=== PATIENT | female | born 1960 | race Hispanic/Latino ===

== ENCOUNTER 2018-05-06 05:25 | Inpatient (IN) | payer MEDICARE, MEDICAID ==
--- NOTE | 2018-05-06 06:17 | ED PDOC ---
HPI: Psych/Substance Abuse Time Seen by Provider: 05/06/18 05:25 Chief Complaint (Nursing): Psychiatric Evaluation Chief Complaint (Provider): Psychiatric evaluation History Per: Patient, EMS History/Exam Limitations: no limitations Associated Symptoms: Suicidal Thoughts, Suicidal Plan Additional Complaint(s): 57yo female, past medical history of Anxiety, Depression, Hypothyroidism, brought to ER by EMS for a psychiatric evaluation. Patient reports she has suicidal ideation with plan to take poison. She denies any homicidal ideation or hallucinations. She offers no medical complaints. Of note, patient's brother recently and that might have been due to a suicide. Patient also states she is compliant with her depression medications. Past Medical History Reviewed: Historical Data, Nursing Documentation, Vital Signs Vital Signs: Last Vital Signs Temp 98.6 F 05/06/18 05:31 Pulse 64 05/06/18 05:31 Resp 18 05/06/18 05:31 BP 127/62 05/06/18 05:31 Pulse Ox 100 05/06/18 05:31 - Medical History PMH: Anxiety, Depression, Diabetes, HTN (no longer takes meds), Hypercholesterolemia, Hypothyroidism, TIA Denies: Chronic Kidney Disease - Surgical History Surgical History: No Surg Hx - Family History Family History: States: Unknown Family Hx - Immunization History Hx Influenza Vaccination: Yes Hx Pneumococcal Vaccination: Yes - Home Medications Home Medications: Ambulatory Orders Medication Instructions Recorded Ergocalciferol (Vitamin D2) 50,000 unit PO FR 05/06/18 [Vitamin D2] LORazepam [Ativan] 0.5 mg PO Q12 05/06/18 Levothyroxine [Synthroid] 50 mcg PO DAILY 05/06/18 Pantoprazole Sodium [Protonix] 20 mg PO DAILY 05/06/18 Polyethylene Glycol 3350 [Miralax] 17 gm PO DAILY PRN 05/06/18 RX: Aspirin [Ecotrin] 81 mg PO DAILY 05/06/18 RX: Pravastatin Sodium [Pravachol] 40 mg PO HS 05/06/18 Sertraline [Zoloft] 50 mg PO DAILY 05/06/18 Zolpidem [Ambien] 10 mg PO HS 05/06/18 lamoTRIgine [Lamictal] 50 mg PO QAM 05/06/18 lamoTRIgine [Lamictal] 100 mg PO HS 05/06/18 - Allergies Allergies/Adverse Reactions: Allergies Allergy/AdvReac Type Severity Reaction Status Date / Time No Known Allergies Allergy Unverified 05/06/18 05:33 Review of Systems ROS Statement: Except As Marked, All Systems Reviewed And Found Negative Constitutional: Negative for: Fever, Chills Cardiovascular: Negative for: Chest Pain Respiratory: Negative for: Shortness of Breath Gastrointestinal: Negative for: Abdominal Pain Genitourinary Female: Negative for: Dysuria Musculoskeletal: Negative for: Back Pain Psych: Positive for: Suicidal ideation Physical Exam - Reviewed Nursing Documentation Reviewed: Yes Vital Signs Reviewed: Yes - Physical Exam Appears: Positive for: Non-toxic Head Exam: Positive for: ATRAUMATIC, NORMAL INSPECTION, NORMOCEPHALIC Skin: Positive for: Normal Color Eye Exam: Positive for: Normal appearance, EOMI, PERRL Neck: Positive for: Normal, Supple Cardiovascular/Chest: Positive for: Regular Rate, Rhythm Respiratory: Positive for: Normal Breath Sounds. Negative for: Wheezing Gastrointestinal/Abdominal: Positive for: Normal Exam, Soft. Negative for: Tenderness Back: Positive for: Normal Inspection. Negative for: Vertebral Tenderness Extremity: Positive for: Normal ROM. Negative for: Pedal Edema, Deformity Neurologic/Psych: Positive for: Alert, Oriented, Mood/Affect (calm and cooperative). Negative for: Motor/Sensory Deficits - Laboratory Results Result Diagrams: 05/06/18 06:50 05/06/18 06:50 - ECG O2 Sat by Pulse Oximetry: 100 (RA) Pulse Ox Interpretation: Normal Medical Decision Making Medical Decision Making: Impression: Suicidal ideation, crisis evaluation Plan: * Labs * UDS * Urinalysis * UPreg * Chest x-ray * EKG * Crisis evaluation 07:00 Patient resting in room comfortably. Patient to be signed out to Dr. Callaway pending labs/med clearance, crisis evaluation. Scribe Attestation: Documented by Denise Justice, acting as a scribe for Bob Freire MD. Provider Scribe Attestation: All medical record entries made by the Scribe were at my direction and personally dictated by me. I have reviewed the chart and agree that the record accurately reflects my personal performance of the history, physical exam, medical decision making, and the department course for this patient. I have also personally directed, reviewed, and agree with the discharge instructions and disposition. Disposition - Clinical Impression Clinical Impression: Depression - Patient ED Disposition Is Patient to be Admitted: Transfer of Care - Disposition Disposition: Transfer of Care Disposition Time: 07:00 Condition: STABLE Patient Signed Over To: Jonatan Callaway
[2018-05-06 07:08] LABS: BASO # 0.1 K/uL (0.0-0.2); BASO % 1.4 % (0.0-2.0); EOS # 0.1 K/uL (0.0-0.7); EOS % 1.8 % (0.0-4.0); HEMOGLOBIN 13.2 g/dL (12.0-16.0); LYMPH # 2.6 K/uL (1.0-4.3); MEAN CELL VOLUME 84.8 fl (81.0-99.0); MEAN CORPUSCULAR HEMOGLOBIN 27.9 pg (27.0-31.0); MEAN CORPUSCULAR HGB CONC 32.9 g/dL (33.0-37.0); MEAN PLATELET VOLUME 7.4 fl (7.2-11.7); MONO # 0.6 K/uL (0.0-0.8); MONO % 9.5 % (0.0-10.0); NEUT # 2.8 K/uL (1.8-7.0); NEUT % 45.3 % (50.0-75.0); RBC 4.74 Mil/uL (3.80-5.20); RED CELL DISTRIBUTION WIDTH 15.5 % (11.5-14.5); WHITE BLOOD COUNT 6.3 K/uL (4.8-10.8)
[2018-05-06 07:16] LABS: ACETAMINOPHEN < 10.0 ug/ml (10.0-30.0); ALB/GLOB RATIO 1.1 (1.0-2.1); ALBUMIN 3.9 g/dL (3.5-5.0); ALT/SGPT 21 U/L (9-52); AST/SGOT 17 U/L (14-36); BLOOD UREA NITROGEN 11 mg/dl (7-17); CALCIUM 9.2 mg/dL (8.4-10.2); GFR NON-AFRICAN AMERICAN > 60; SALICYLATE < 1.0 mg/dl
--- NOTE | 2018-05-06 07:54 | ED PDOC ---
- Laboratory Results Result Diagrams: 05/06/18 06:50 05/06/18 06:50 - ECG O2 Sat by Pulse Oximetry: 100 (RA) Medical Decision Making Medical Decision Making: Medically stable for psychiatric admission Disposition - Clinical Impression Clinical Impression: Depression - POA Present On Arrival: None - Disposition Disposition: Admitted as In-Patient Disposition Time: 09:07 Condition: FAIR Forms: [facility] [facility] (Montenegrin)
[2018-05-06] MEDS ORDERED: Magnesium Hydroxide Susp 30 ml UD PO PRN (09:36)
[2018-05-06] MEDS ORDERED: Alum-Mag Hydrox-Simethicone Susp (30 mL) PO PRN (09:36)
[2018-05-06] MEDS ORDERED: Bismuth Subsalicylate 262 mg/15 ml Sus (240 ml) PO PRN (09:36)
[2018-05-06 10:03] LABS: URINE BACTERIA RARE (<OCC); URINE BILIRUBIN NEGATIVE (NEGATIVE); URINE BLOOD NEGATIVE (NEGATIVE); URINE CLARITY CLEAR (Clear); URINE COLOR YELLOW (YELLOW); URINE GLUCOSE (UA) NEG (Normal); URINE LEUKOCYTE ESTERASE SMALL Leu/uL (Negative); URINE PROTEIN NEGATIVE (NEGATIVE); URINE UROBILINOGEN 0.2-1.0 mg/dL (0.2-1.0)
[2018-05-06 10:04] LABS: SQUAMOUS EPITHIAL 2 /hpf (0-5)
[2018-05-06 10:33] LABS: BARBITURATES, UR NEGATIVE (NEGATIVE); BENZODIAZEPINES, UR NEGATIVE (NEGATIVE); OPIATES, UR NEGATIVE (NEGATIVE); PHENCYCLIDINE, UR NEGATIVE (NEGATIVE)
--- NOTE | 2018-05-06 11:27 | PCM.PSYCH ---
Initial Psychiatric Evaluation - Initial Psychiatric Evaluation Type of Admission: Voluntary Legal Status: Capacity Chief Complaint (in patient's own words): "I wanted to kill myself." Patient's Reaction to Hospitalization: HPI: 57 yo female w/ h/o Major Depressive Disorder and Borderline Personality Disorder, presents w/ suicidal ideation w/ plan to ingest rat poison in the context of the recent of her brother 2 weeks ago. Patient reports that when she found out about her brothers , she attempted suicide by overdosing on her medications (quantity unknown), but she did not tell anyone about the attempt and was not hospitalized at the time. She reports that she has not been compliant with medications since she overdosed on her psychiatric medications and does not have a current psychiatrist. She continues to be depressed, hopeless w/ suicidal ideation, poor sleep, poor appetite. Denies AH/ VH/HI. PPHx: Multiple past psychiatric admissions >10 and multiple past suicide attempts >3, most recent ~2 weeks ago after discovering her brother ; She reports that she does not currently have outpatient psychiatric follow-up. PMHx: HTN, Hypothyroidism, HLD, Chronic nerve pain (fingers), Chronic headaches/ migraines ALL: NKDA SHx: Lives alone, , no kids, from [place]; denies drugs/etoh/cig use FHx: Brother w/ depression recently by possible suicide Current Medications: Active Medications Generic Name Dose Route Start Last Admin Trade Name Freq PRN Reason Stop Dose Admin Acetaminophen 650 mg 05/06/18 09:36 Tylenol 325mg Tab PO Q4 PRN Pain, moderate (4-7) Al Hydrox/Mg Hydrox/Simethicone 30 ml 05/06/18 09:36 Maalox Plus 30 Ml PO Q4 PRN Dyspepsia Aspirin 81 mg 05/07/18 09:00 Ecotrin PO DAILY [facility] Bismuth Subsalicylate 524 mg 05/06/18 09:36 Pepto-Bismol PO Q4 PRN Diarrhea Ergocalciferol cap 05/07/18 09:00 Drisdol 50,000 Intl Units Cap PO Q7D [facility] Lorazepam 0.5 mg 05/06/18 09:36 Ativan PO 05/20/18 09:37 Q6 PRN Anixety/Agitation Lorazepam 0.5 mg 05/06/18 09:36 Ativan PO 05/20/18 09:37 HS PRN Insomnia Magnesium Hydroxide 30 ml 05/06/18 09:36 Milk Of Magnesia PO HS PRN Constipation Sertraline HCl 50 mg 05/07/18 09:00 Zoloft PO DAILY [facility] Past Psychiatric History - Past Psychiatric History Previous Treatment History: Inpatient Pertinent Medical Hx (Current Medical&Sleep Prob, Allergies): Allergies Allergy/AdvReac Type Severity Reaction Status Date / Time No Known Allergies Allergy Unverified 05/06/18 05:33 Aspirin [Ecotrin] 81 mg PO DAILY 05/06/18 Ergocalciferol (Vitamin D2) [Vitamin D2] 50,000 unit PO FR 05/06/18 LORazepam [Ativan] 0.5 mg PO Q12 05/06/18 Levothyroxine [Synthroid] 50 mcg PO DAILY 05/06/18 Pantoprazole Sodium [Protonix] 20 mg PO DAILY 05/06/18 Polyethylene Glycol 3350 [Miralax] 17 gm PO DAILY PRN 05/06/18 Pravastatin Sodium [Pravachol] 40 mg PO HS 05/06/18 Sertraline [Zoloft] 50 mg PO DAILY 05/06/18 Zolpidem [Ambien] 10 mg PO HS 05/06/18 lamoTRIgine [Lamictal] 50 mg PO QAM 05/06/18 lamoTRIgine [Lamictal] 100 mg PO HS 05/06/18 Review of Systems - Psychiatric Psychiatric: As Per HPI, Abnormal Sleep Pattern, Anhedonia, Anxiety, Behavioral Changes, Change in Appetite, Depression, Difficulty Concentrating, Hopelessness , Irritability, Mood Swings, Suicidal Ideation Mental Status Examination - Personal Presentation Personal Presentation: Looks stated age - Affect Affect: Depressed - Motor Activity Motor Activity: Calm - Reliability in Providing Information Reliability in Providing Information: Fair - Speech Speech: Organized, Coherent - Mood Mood: Depressed - Formal Thought Process Formal Thought Process: No Impairment - Hallucinations/Delusions Additional comments: No AH/VH/paranoia/delusions - Obsessions/Compulsions Obsessions: No Compulsions: No - Cognitive Functions Orientation: Person, Place, Situation, Time Sensorium: Alert Attention/Concentration: Attentive Estimate of Intelligence: Average Judgement: Intact, as evidence by: Insight regarding need for hospitalization Memory: Recent intact, as evidence by: Ability to recall events of the day, Remote intact, as evidenced by: Abilit to recall sig. life events, Remote intact , as evidenced by: Ability to recall historical events - Risk Risk: Suicidal, Diminished functioning - Strength & Assets Inventory Strength & Assets Inventory: Cooperative - Limitations Limitations: Living alone DSM 5 DX - DSM 5 DSM 5 Diagnosis: Major Depressive Disorder - Recommended/Plan of Treatment Treatment Recommendations and Plan of Treatment: Major Depressive Disorder, Borderline Personality Disorder -Admit to psychiatry unit -Restart Zoloft 50 mg PO Daily -Medicine consult -Individual and group therapy -Psychoeducation -Obtain collateral history -Disposition planning Projected ELOS: 7-10 days Discharge Plan and Discharge Criteria: Discharge when patient is psychiatrically stable - Smoking Cessation Smoking Cessation Initiated: No Reason for not providing: Not indicated
--- NOTE | 2018-05-06 12:43 | PCM.BM ---
<Kaelyn Carlson - Last Filed: 05/06/18 12:35> Treatment Plan Problems - Problems identified on initial assessmt suicidal ideation Date Initiated: 05/06/18 Time Initiated: 12:43 Date resolved: 05/13/18 Assessment reference: NA Status: Active Priority: 1 Problem 2 Date Initiated: 05/06/18 Time Initiated: 12:44 Date resolved: 05/13/18 Assessment reference: NA Status: Active Priority: 2 Treatment assets and liabiliti Patient Assests: cooperative, ADL independent, negotiates basic needs Patient Liabilities: poor support system, medical problems - Milieu Protocol Maintain good personal hygiene: every shift Encourage regular showers, every shift Remind patient to perform daily oral care, every shift Assist patient to perform ADL's Maintain personal safety: every shift Educate patient to report safety concerns to staff, every shift Monitor environment for contraband/sharps Medication safety: Monitor for expected outcome, potential side effects: every shift, Assess barriers to learning: every shift, Assess readiness for medication education: every shift Milieu Narrative: Major Depressive Disorder, Borderline Personality Disorder -Admit to psychiatry unit -Restart Zoloft 50 mg PO Daily -Medicine consult -Individual and group therapy -Psychoeducation -Obtain collateral history -Disposition planning Discharge/Continuing Care - Treatment Team Participation Patient/Family/SO Statement: Major Depressive Disorder, Borderline Personality Disorder -Admit to psychiatry unit -Restart Zoloft 50 mg PO Daily -Medicine consult -Individual and group therapy -Psychoeducation -Obtain collateral history -Disposition planning <Joanie Srinivasan - Last Filed: 05/07/18 10:49> - Diagnosis (1) Major depressive disorder Status: Acute Interventions: Medication management, Individual and group therapy, Psychoeducation 05/07/18 10:49 <Lay Argueta - Last Filed: 05/10/18 08:00> Family Contact Family involvement: Patient does not wish Family/SO involvement - Outside Agency [facility] Care involvment: Information-sharing Agency contact name: Sarah- Medical coordinator Agency contact number: [phone] - Goals for Treatment Patient goals for treatment: Pt to be encouraged to attend activity and clinical groups 3-5x per week to identify at least 2 contributing factors to depression and suicide attempt. Psycho-education to be provided to patient/family regarding benefits of medications and treatment adherence. Pt to be encouraged to participate in group milieu to develop effective coping skills to reduce depression and free of suicide ideation. Coordinate discharge resource needs by providing referral for psychiatric treatment follow up in the community. Discharge/Continuing Care - Education Needs Education Needs: Patient Medication, Patient Diagnosis/Disease Process, Patient Coping Skills, Patient Community resources, Patient Nutrition, Patient Health Practices/Safety, Patient Personal Hygiene/Grooming, Patient Aftercare Safety Plan - Discharge Discharge Criteria: Tolerates medication w/o severe side effects, Free of Suicidal thoughts, Normal sleep pattern, Ability to care for self, Reduction of target symptoms Discharge to:: Home - Additional Comments 05/10/18 07:43 LATE ENTRY FROM 05/09/2018: Pt seen and discussed in team meeting. Reason for admission reviewed and discussed. Pt's progress on the unit reviewed. Pt reported feeling depressed and intermittent suicide ideation. Pt verbalized and agreed to contract for safety on the unit. Pt reported that last night she was sleeping and in the middle of the night "I started to look around to see what i can do to end my life." Pt reported she saw a "light with glass and thought i can cut myself with it." Pt continues to verbalize "I want to go where he is" making reference to her brother. Pt reported having obsessive thoughts about her brothers "my mind is like a machine." Pt also reported that she has contacted several organization in regards to organ donor. Pt's medications reviewed and discussed. Pt's social and emotional issues reviewed and discussed. Tx plan reviewed; pt verbalized agreement. Pt continues to refuse to provide collateral information. SW will continue to follow case. - Treatment Team Participation Discussed with Family/SO: No (Pt refused family involvement) Was Patient/Family/SO present at Treatment Team Meeting: Yes
--- NOTE | 2018-05-06 13:51 | CARD ---
APPROVED REPORT Date of service: 05/06/2018 EKG Measurement Heart [id number] <Conclusion> Sinus bradycardia with sinus arrhythmia Nonspecific STT wave abnormality Prolonged QT Abnormal ECG
[2018-05-07] MEDS: Ergocalciferol 50,000 Intl Units Cap PO SCH (08:18)
[2018-05-07] MEDS: Levothyroxine 50 MCG TAB PO SCH (08:19)
[2018-05-07 08:56] LABS: T4 8.28 ug/dl (5.5-11.0)
--- NOTE | 2018-05-07 10:52 | PCM.PYCHPN ---
Psychiatric Progress Note - Psychiatric Progress Note Patient seen today, length of contact: Pt evaluated, case discussed w/ team, chart reviewed Patient Chief Complaint: "I wanted to kill myself." Problems Identified/Issues Discussed: Patient continues to report feeling depressed w/ low mood, low energy, anhedonia and poor concentration. She continues to have intermittent thoughts of suicide, but is able to contract for safety on the unit. NO AH/VH/paranoia/ delusions. Medication Change: No Medical Record Reviewed: Yes Consults ordered or reviewed: Medicine consult Mental Status Examination - Cognitive Function Orientation: Person, Place, Situation, Time Memory: Intact Attention: WNL Concentration: WNL Association: WNL Fund of Knowledge: [facility] Decription of patient's judgement and insights: Poor I/J - Mood Mood: Depressed - Affect Affect: Depressed - Speech Speech: Soft - Formal Thought Process Formal Thought Process: No Impairment Psychotic Thoughts and Behaviors: NO AH/VH/paranoia/delusions - Suicidal Ideation Suicidal Ideation: Yes - Homicidal Ideation Homicidal Ideation: No Goal/Treatment Plan - Goal/Treatment Plan Need for Continued Stay: Remain at risks for inpatient hospitalization, Severe depression anxiety, Discharge may exacerbated symptoms Progress Toward Problem(s) and Goals/Treatment Plan: Major Depressive Disorder, Borderline Personality Disorder -Continue Zoloft 50 mg PO Daily -Medicine consult -Individual and group therapy -Psychoeducation -Obtain collateral history -Disposition planning Estimated Date of D/C: 05/13/18
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
[2018-05-07 17:27] LABS: FOLATE 6.3 ng/mL
[2018-05-07] MEDS: Pravastatin Sodium 40 MG TAB PO SCH (21:12)
[2018-05-08] MEDS: Levothyroxine 50 MCG TAB PO SCH (05:57)
[2018-05-08] MEDS: Pantoprazole 20 mg EC Tab PO SCH (08:47)
--- NOTE | 2018-05-08 08:51 | PCM.PYCHPN ---
Psychiatric Progress Note - Psychiatric Progress Note Patient seen today, length of contact: Pt evaluated, case discussed w/ team, chart reviewed Patient Chief Complaint: "I wanted to kill myself." Problems Identified/Issues Discussed: Patient continues to report feeling depressed w/ low mood, low energy, anhedonia and poor concentration. She continues to have thoughts of suicide, feels hopeless and states that life is not worth living. No AH/VH/paranoia/ delusions. Medication Change: No Medical Record Reviewed: Yes Consults ordered or reviewed: Medicine consult Mental Status Examination - Cognitive Function Orientation: Person, Place, Situation, Time Memory: Intact Attention: WNL Concentration: WNL Association: WNL Fund of Knowledge: [facility] Decription of patient's judgement and insights: Poor I/J - Mood Mood: Depressed - Affect Affect: Depressed - Speech Speech: Soft - Formal Thought Process Formal Thought Process: No Impairment Psychotic Thoughts and Behaviors: NO AH/VH/paranoia/delusions - Suicidal Ideation Suicidal Ideation: Yes - Homicidal Ideation Homicidal Ideation: No Goal/Treatment Plan - Goal/Treatment Plan Need for Continued Stay: Remain at risks for inpatient hospitalization, Severe depression anxiety, Discharge may exacerbated symptoms Progress Toward Problem(s) and Goals/Treatment Plan: Major Depressive Disorder -Continue Zoloft 50 mg PO Daily -Medicine consult -Individual and group therapy -Psychoeducation -Obtain collateral history -Disposition planning Estimated Date of D/C: 05/13/18
[2018-05-08] MEDS: Pravastatin Sodium 40 MG TAB PO SCH (21:08)
[2018-05-09] MEDS: Levothyroxine 50 MCG TAB PO SCH (05:38)
[2018-05-09] MEDS: Pantoprazole 20 mg EC Tab PO SCH (09:30)
--- NOTE | 2018-05-09 11:19 | PCM.PYCHPN ---
Psychiatric Progress Note - Psychiatric Progress Note Patient seen today, length of contact: Pt evaluated, case discussed w/ team, chart reviewed Patient Chief Complaint: "I wanted to kill myself." Problems Identified/Issues Discussed: Patient continues to report feeling severely depressed w/ active suicidal ideation, w/ recent thoughts to find glass to cut her wrist. She states that she can not stop thinking about her brothers and feels guilty because shes she may have caused him to commit suicide and not knowing his cause of "will drive [her] crazy." She continues to feel hopeless and does not believe life is worth living. No AH/VH/paranoia/delusions. Medication Change: Yes (Increase Zoloft) Medical Record Reviewed: Yes Consults ordered or reviewed: Medicine consult Mental Status Examination - Cognitive Function Orientation: Person, Place, Situation, Time Memory: Intact Attention: WNL Concentration: WNL Association: WNL Fund of Knowledge: [facility] Decription of patient's judgement and insights: Poor I/J - Mood Mood: Depressed - Affect Affect: Depressed - Speech Speech: Soft - Formal Thought Process Formal Thought Process: No Impairment Psychotic Thoughts and Behaviors: NO AH/VH/paranoia/delusions - Suicidal Ideation Suicidal Ideation: Yes Plan: Plan to slit wrists - Homicidal Ideation Homicidal Ideation: No Goal/Treatment Plan - Goal/Treatment Plan Need for Continued Stay: Remain at risks for inpatient hospitalization, Severe depression anxiety, Discharge may exacerbated symptoms Progress Toward Problem(s) and Goals/Treatment Plan: Major Depressive Disorder, Borderline Personality Disorder -Increase Zoloft to 100 mg PO HS -Medicine consult -Individual and group therapy -Psychoeducation -Disposition planning Estimated Date of D/C: 05/16/18
[2018-05-09] MEDS: Pravastatin Sodium 40 MG TAB PO SCH (21:03)
[2018-05-10] MEDS: Levothyroxine 50 MCG TAB PO SCH (06:48)
--- NOTE | 2018-05-10 09:25 | PCM.PYCHPN ---
Psychiatric Progress Note - Psychiatric Progress Note Patient seen today, length of contact: Pt evaluated, case discussed w/ team, chart reviewed Patient Chief Complaint: "I wanted to kill myself." Problems Identified/Issues Discussed: Patient continues to report feeling severely depressed w/ active suicidal ideation. She continues to feel hopeless and does not believe life is worth living. She continues to be preoccupied with her brother's . No AH/VH/paranoia/delusions. Medication Change: No Medical Record Reviewed: Yes Consults ordered or reviewed: Medicine consult Mental Status Examination - Cognitive Function Orientation: Person, Place, Situation, Time Memory: Intact Attention: WNL Concentration: WNL Association: WNL Fund of Knowledge: [facility] Decription of patient's judgement and insights: Poor I/J - Mood Mood: Depressed - Affect Affect: Depressed - Speech Speech: Soft - Formal Thought Process Formal Thought Process: No Impairment Psychotic Thoughts and Behaviors: NO AH/VH/paranoia/delusions - Suicidal Ideation Suicidal Ideation: Yes - Homicidal Ideation Homicidal Ideation: No Goal/Treatment Plan - Goal/Treatment Plan Need for Continued Stay: Remain at risks for inpatient hospitalization, Severe depression anxiety, Discharge may exacerbated symptoms Progress Toward Problem(s) and Goals/Treatment Plan: Major Depressive Disorder, Borderline Personality Disorder -Continue Zoloft 100 mg PO HS -Medicine consult -Individual and group therapy -Psychoeducation -Disposition planning Estimated Date of D/C: 05/16/18
[2018-05-10] MEDS: Pantoprazole 20 mg EC Tab PO SCH (09:50)
[2018-05-10] MEDS: Pravastatin Sodium 40 MG TAB PO SCH (21:06)
[2018-05-11] MEDS: Levothyroxine 50 MCG TAB PO SCH (06:34)
[2018-05-11] MEDS: Pantoprazole 20 mg EC Tab PO SCH (08:38)
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
[2018-05-11] MEDS: Pravastatin Sodium 40 MG TAB PO SCH (21:03)
[2018-05-11] MEDS ORDERED: Risperidone M TAB 2 MG PO SCH (22:00)
[2018-05-11] MEDS ORDERED: Risperidone M tab 1 MG PO SCH (22:00)
[2018-05-12] MEDS: Levothyroxine 50 MCG TAB PO SCH (06:44)
[2018-05-12] MEDS: Pantoprazole 20 mg EC Tab PO SCH (08:31)
--- NOTE | 2018-05-12 09:22 | PCM.PYCHPN ---
Psychiatric Progress Note - Psychiatric Progress Note Patient seen today, length of contact: Pt evaluated, case discussed w/ team, chart reviewed Patient Chief Complaint: "I wanted to kill myself." Problems Identified/Issues Discussed: Patient denies acute suicidal ideation/plan/intent. She reports that his mood is starting to improve, but she continues to have intermittent feelings of depression and continues to be preoccupied with her brother's . She tomy nues to express mild paranoia, unclear if this paranoia is chronic. No adverse effects to medications reported. Medication Change: Yes (Increase Risperdal ) Medical Record Reviewed: Yes Consults ordered or reviewed: Medicine consult Mental Status Examination - Cognitive Function Orientation: Person, Place, Situation, Time Memory: Intact Attention: WNL Concentration: WNL Association: WNL Fund of Knowledge: WNL Decription of patient's judgement and insights: Improving I/J - Mood Mood: Depressed - Affect Affect: Constricted - Speech Speech: Appropriate - Formal Thought Process Formal Thought Process: Paranoia Psychotic Thoughts and Behaviors: +Paranoia - Suicidal Ideation Suicidal Ideation: No - Homicidal Ideation Homicidal Ideation: No Goal/Treatment Plan - Goal/Treatment Plan Need for Continued Stay: Remain at risks for inpatient hospitalization, Severe depression anxiety, Discharge may exacerbated symptoms Progress Toward Problem(s) and Goals/Treatment Plan: Major Depressive Disorder w/ Psychotic Features, Borderline Personality Disorder -Continue Zoloft 100 mg PO HS -Increase Risperdal -Medicine consult -Individual and group therapy -Psychoeducation -Disposition planning Estimated Date of D/C: 05/16/18
[2018-05-12] MEDS: Pravastatin Sodium 40 MG TAB PO SCH (21:07)
[2018-05-13] MEDS: Levothyroxine 50 MCG TAB PO SCH (06:47)
[2018-05-13] MEDS: Pantoprazole 20 mg EC Tab PO SCH (08:41)
--- NOTE | 2018-05-13 11:01 | PCM.PYCHPN ---
Psychiatric Progress Note - Psychiatric Progress Note Patient seen today, length of contact: Pt evaluated, case discussed w/ team, chart reviewed Patient Chief Complaint: "I wanted to kill myself." Problems Identified/Issues Discussed: Patient denies acute suicidal ideation/plan/intent. She continues to have some residual paranoia and is preoccupied with her brother's . She reports that her mood is improving. She is more goal oriented and hopeful for the future. No adverse effects to medications reported. Medication Change: Yes (Increase Risperdal ) Medical Record Reviewed: Yes Consults ordered or reviewed: Medicine consult Mental Status Examination - Cognitive Function Orientation: Person, Place, Situation, Time Memory: Intact Attention: WNL Concentration: WNL Association: WNL Fund of Knowledge: [facility] Decription of patient's judgement and insights: Improving I/J - Mood Mood: Depressed - Affect Affect: Constricted - Speech Speech: Appropriate - Formal Thought Process Formal Thought Process: Paranoia Psychotic Thoughts and Behaviors: +Mild paranoia - Suicidal Ideation Suicidal Ideation: No - Homicidal Ideation Homicidal Ideation: No Goal/Treatment Plan - Goal/Treatment Plan Need for Continued Stay: Remain at risks for inpatient hospitalization, Severe depression anxiety, Discharge may exacerbated symptoms Progress Toward Problem(s) and Goals/Treatment Plan: Major Depressive Disorder w/ Psychotic Features, Borderline Personality Disorder -Continue Zoloft 100 mg PO HS -Increase Risperdal -Medicine consult -Individual and group therapy -Psychoeducation -Disposition planning Estimated Date of D/C: 05/16/18
--- NOTE | 2018-05-13 11:03 | PCM.PYCHPN ---
Psychiatric Progress Note - Psychiatric Progress Note Patient seen today, length of contact: Pt evaluated, case discussed w/ team, chart reviewed Patient Chief Complaint: Depression Problems Identified/Issues Discussed: Patient denies acute suicidal ideation/plan/intent. She continues to have some residual paranoia and is preoccupied with her brother's . She reports that her mood is improving. She is more goal oriented and hopeful for the future. No adverse effects to medications reported. Medication Change: Yes (Increase Risperdal ) Medical Record Reviewed: Yes Consults ordered or reviewed: Medicine consult Mental Status Examination - Cognitive Function Orientation: Person, Place, Situation, Time Memory: Intact Attention: WNL Concentration: WNL Association: WNL Fund of Knowledge: [facility] Decription of patient's judgement and insights: Improving I/J - Mood Mood: Depressed - Affect Affect: Constricted - Speech Speech: Appropriate - Formal Thought Process Formal Thought Process: Paranoia Psychotic Thoughts and Behaviors: +Mild paranoia - Suicidal Ideation Suicidal Ideation: No - Homicidal Ideation Homicidal Ideation: No Goal/Treatment Plan - Goal/Treatment Plan Need for Continued Stay: Remain at risks for inpatient hospitalization, Severe depression anxiety, Discharge may exacerbated symptoms Progress Toward Problem(s) and Goals/Treatment Plan: Major Depressive Disorder w/ Psychotic Features, Borderline Personality Disorder -Continue Zoloft 100 mg PO HS -Increase Risperdal -Medicine consult -Individual and group therapy -Psychoeducation -Disposition planning Estimated Date of D/C: 05/16/18
[2018-05-13] MEDS: Pravastatin Sodium 40 MG TAB PO SCH (21:11)
[2018-05-14 06:28] VITALS: O2SAT 18
[2018-05-14] MEDS: Levothyroxine 50 MCG TAB PO SCH (07:50)
[2018-05-14] MEDS: Pantoprazole 20 mg EC Tab PO SCH (08:09)
--- NOTE | 2018-05-14 10:14 | PCM.PYCHPN ---
Psychiatric Progress Note - Psychiatric Progress Note Patient seen today, length of contact: Pt evaluated, case discussed w/ team, chart reviewed Patient Chief Complaint: pt is still with dysphoric mood and still not able to sleep and with poor insight and need further stabilization. Medication Change: Yes (Increase Risperdal ) Medical Record Reviewed: Yes Mental Status Examination - Cognitive Function Orientation: Person, Place, Situation, Time Memory: Intact Attention: WNL Concentration: WNL Association: WNL Fund of Knowledge: WNL - Mood Mood: Depressed - Affect Affect: Constricted - Speech Speech: Appropriate - Formal Thought Process Formal Thought Process: Paranoia - Suicidal Ideation Suicidal Ideation: No - Homicidal Ideation Homicidal Ideation: No Goal/Treatment Plan - Goal/Treatment Plan Need for Continued Stay: Remain at risks for inpatient hospitalization, Severe depression anxiety, Discharge may exacerbated symptoms Progress Toward Problem(s) and Goals/Treatment Plan: will continue to stabilize the pt with titrating risperdal . d/c plans as per dr trejo Estimated Date of D/C: 05/16/18
[2018-05-14] MEDS: Ergocalciferol 50,000 Intl Units Cap PO SCH (12:31)
[2018-05-14] MEDS: Pravastatin Sodium 40 MG TAB PO SCH (21:01)
[2018-05-15] MEDS: Levothyroxine 50 MCG TAB PO SCH (08:13)
[2018-05-15] MEDS: Pantoprazole 20 mg EC Tab PO SCH (08:13)
--- NOTE | 2018-05-15 14:39 | PCM.PYCHPN ---
Psychiatric Progress Note - Psychiatric Progress Note Patient seen today, length of contact: Pt evaluated, case discussed w/ team, chart reviewed Patient Chief Complaint: pt has remained with paranoea and is internally preoccupied and is still with dysphoric mood and still not able to sleep and with poor insight and need further stabilization. Medication Change: Yes (Increase Risperdal ) Medical Record Reviewed: Yes Mental Status Examination - Cognitive Function Orientation: Person, Place, Situation, Time Memory: Intact Attention: WNL Concentration: WNL Association: WNL Fund of Knowledge: WNL - Mood Mood: Depressed - Affect Affect: Constricted - Speech Speech: Appropriate - Formal Thought Process Formal Thought Process: Paranoia - Suicidal Ideation Suicidal Ideation: No - Homicidal Ideation Homicidal Ideation: No Goal/Treatment Plan - Goal/Treatment Plan Need for Continued Stay: Remain at risks for inpatient hospitalization, Severe depression anxiety, Discharge may exacerbated symptoms Progress Toward Problem(s) and Goals/Treatment Plan: will continue to stabilize the pt with titrating risperdal which has been recently increased . d/c plans as per dr trejo Estimated Date of D/C: 05/16/18
[2018-05-15] MEDS: Pravastatin Sodium 40 MG TAB PO SCH (21:28)
[2018-05-16 06:19] VITALS: BP 101/63; PULSE 84; RESP 18; TEMP 98.1
[2018-05-16] MEDS: Levothyroxine 50 MCG TAB PO SCH (06:25)
--- NOTE | 2018-05-16 08:29 | PCM.PYCHDC ---
Mental Status Examination - Mental Status Examination Orientation: Person, Place, Situation, Time Memory: Intact Mood: Neutral Affect: Broad Speech: Appropriate Attention: WNL Concentration: WNL Association: WNL Fund of Knowledge: WNL Formal Thought Process: No Impairment Description of patient's judgement and insight: Good I/J Psychotic Thoughts and Behaviors: No acute AH/VH/paranoia/delusions Suicidal Ideation: No Current Homicidal Ideation?: No Discharge Summary - Discharge Note Reason for Hospitalization: HPI: 57 yo female w/ h/o Major Depressive Disorder and Borderline Personality Disorder, presents w/ suicidal ideation w/ plan to ingest rat poison in the context of the recent of her brother 2 weeks ago. Patient reports that when she found out about her brothers , she attempted suicide by overdosing on her medications (quantity unknown), but she did not tell anyone about the attempt and was not hospitalized at the time. She reports that she has not been compliant with medications since she overdosed on her psychiatric medications and does not have a current psychiatrist. She continues to be depressed, hopeless w/ suicidal ideation, poor sleep, poor appetite. Denies AH/VH/HI. PPHx: Multiple past psychiatric admissions >10 and multiple past suicide attempts >3, most recent ~2 weeks ago after discovering her brother ; She reports that she does not currently have outpatient psychiatric follow-up. PMHx: HTN, Hypothyroidism, HLD, Chronic nerve pain (fingers), Chronic headaches/migraines ALL: NKDA SHx: Lives alone, , no kids, from [place]; denies drugs/etoh/cig use FHx: Brother w/ depression recently by possible suicide Consultations:: List each consultation separately and include: 1. Reason for request. 2. Findings. 3. Follow-up Consultations: Medicine consult Summary of Hospital Course include:: 1. Description of specific treatment plan utilized for patients during their course of treatmen. 2. Summarize the time- course for resolution of acute symptoms and/or regressed behaviors. 3. Describe issues identified and worked on during hospitalization. 4. Describe medication utilized. 5. Describe medical problems identified and treated. 6. Reassessment of suicide risk Summary of Hospital Course: Patient was admitted to the psychiatry unit. Individual and group therapy were provided. Patient was stabilized on Zoloft 100 mg PO Daily and Risperdal 3 mg PO HS. She reports improvement in mood, no acute depression/anxiety/AH/VH/SI/HI/paranoia/delusions. Patient is psychiatrically stable for discharge with outpatient follow-up. Psychoeducation provided on the importance of compliance with outpatient treatment and medications. - Diagnosis (1) Major depressive disorder Current Visit: Yes Status: Acute - Final Diagnosis (DSM 5) Condition upon Discharge: STABLE DSM 5: Major Depressive Disorder; Borderline Personality Disorder Disposition: HOME/ ROUTINE Follow-up Treatment Plan: Major Depressive Disorder w/ Psychotic Features, Borderline Personality Disorder -Continue Zoloft 100 mg PO HS -Continue Risperdal 3 mg PO HS -Patient is psychiatrically stable for discharge Prescriptions/Medication Reconciliation: risperiDONE [RisperDAL Tab] 3 mg PO HS #30 tab Sertraline [Zoloft] 100 mg PO HS #30 tab - Smoking Cessation Smoking Cessation Medication prescribed: No Reason for not providing: Not indicated - Antipsychotic Medications Pt discharged on 2 or more routine antipsychotic medications: No
[2018-05-16] MEDS: Pantoprazole 20 mg EC Tab PO SCH (08:50)
== END 2018-05-16 10:35 | disposition home or self-care (01) | DRG 885 ==
LOC: H.ER 05:25 → H.ERHOLD 09:05 → H.STEP 11:44
PROVIDERS: ADMIT Psychiatry & Neurology Psychiatry; ATTEND Psychiatry & Neurology Psychiatry
PROC: GZHZZZZ Group Psychotherapy (ICD-10-PCS; principal; 2018-05-06)
PROC: GZ51ZZZ Individual Psychotherapy, Behavioral (ICD-10-PCS; 2018-05-06)
DX: F32.3 Major depressive disorder, single episode, severe with psychotic features (principal); R45.851 Suicidal ideations; F60.3 Borderline personality disorder; Z79.899 Other long term (current) drug therapy; Z81.8 Family history of other mental and behavioral disorders; Z91.14 Patient's other noncompliance with medication regimen; Z91.5 Personal history of self-harm; E11.9 Type 2 diabetes mellitus without complications; F41.9 Anxiety disorder, unspecified; E78.5 Hyperlipidemia, unspecified; G43.909 Migraine, unspecified, not intractable, without status migrainosus; K59.00 Constipation, unspecified; R63.0 Anorexia; E03.9 Hypothyroidism, unspecified